=== PATIENT | male | born 1965 | race Caucasian/White ===

== ENCOUNTER 2018-06-24 14:38 | Emergency (ER) | payer SELFPAY ==
[~2018-06-24] VITALS: Ht 172.7 cm; Wt 81.8 kg
[2018-06-24 14:58] VITALS: Ht 172.7 cm; Wt 81.8 kg
[2018-06-24] MEDS ORDERED: ALTACE10 MG PO (15:00)
[2018-06-24] MEDS ORDERED: TOPAMAX50 MG PO (15:03)
[2018-06-24] MEDS ORDERED: ZITHROMAX250 MG PO (16:55)
[2018-06-24 17:15] VITALS: BP 154/85
== END 2018-06-24 17:15 | disposition home or self-care (01) ==
LOC: D.ER 14:38
DX: S01.01XA Laceration without foreign body of scalp, initial encounter (principal); W18.00XA Striking against unspecified object with subsequent fall, initial encounter; Y93.89 Activity, other specified; Y92.019 Unspecified place in single-family (private) house as the place of occurrence of the external cause; I10 Essential (primary) hypertension; F17.200 Nicotine dependence, unspecified, uncomplicated